=== PATIENT | male | born 2005 | race African-American/Black ===

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

== ENCOUNTER 2025-02-18 22:49 | Emergency (ER) | payer OTHER, SELFPAY ==
--- NOTE | ~2025-02-18 | XR_ITS ---
CLINICAL HISTORY: abd pain Abdomen X-ray, 1 View COMPARISON: None provided FINDINGS: Nonobstructive bowel gas pattern. No visible free air. No acute fracture. IMPRESSION: No acute findings. This document has been electronically signed by: Ryne Roberts MD on 02/19/2025 00:23:31
[2025-02-18 23:35] VITALS: BP 109/72; PULSE 100; RESP 18; TEMP 37; O2SAT 99; BMI 19.0
[2025-02-19 00:50] LABS: Hematocrit 44.2 % (42.0-52.0); Hemoglobin 15.0 g/dl (14.0-18.0); Imm Gran Abs Auto 0.16 X10*3/uL (0.00-0.03); Imm Gran Pct Auto 0.7 % (0.0-0.4); Lymphocytes Absolute Auto 0.5 X10*3/uL (1.2-4.9); MANUAL DIFF FLAG SCAN; Mean Corpuscular HGB Conc 33.9 g/dl (31.0-36.0); Mean Corpuscular Hemoglobin 28.4 pg (27.0-33.0); Mean Corpuscular Volume 83.7 fL (80.0-98.0); NRBC Abs Auto 0.000 X10*3/uL (0.0-0.012); NRBC Pct Auto 0.0 /100WBC (0.0-0.2); PLT CLUMP 1; Red Blood Count 5.28 X10*6/uL (4.60-5.80); SCAN SMEAR FLAG 1
[2025-02-19 00:53] LABS: Alanine Aminotransferase 24 U/L (0-40); Albumin Level 4.9 g/dL (3.5-5.0); Alkaline Phosphatase 62 U/L (39-117); Anion Gap 18 (12-20); Aspartate Amino Transferase 23 U/L (5-37); Blood Urea Nitrogen 14 mg/dL (9-16); Calcium 9.6 mg/dL (8.4-10.2); Carbon Dioxide 17 mmol/L (22-29); Chloride 110 mmol/L (96-108); Creatinine Clr Calc Pharmacy 111.8; Estimated Glomerular Filt Rate > 60; Lipase 14 U/L (8-78); Potassium 4.4 mmol/L (3.3-5.1); Sodium 141 mmol/L (135-145); Total Protein 8.1 g/dL (6.5-8.0)
[2025-02-19 01:25] LABS: Platelet Count 193 X10*3/uL (160-400); White Blood Count 22.4 X10*3/uL (4.8-10.8)
--- OUTSIDE RECORDS SUMMARY | 2025-02-19 03:34 | XMS_ITS | Encounter Summary ---
Author Organization [facility] Address [address] [place], [place] [phone] Phone Care Team Providers Care Plug Wirer Name Role Phone Sarika Trejo NP Primary Care Provider [phone] Encounter Details Date Type Department Care Team (Late st Contact Info) Description 11/04/2016 Conversion Encounter [facility] [place] [address] [place] [address] Social History Tobacco Use Types Packs/Day Years Used Date Smoking Tobacco: Never Assessed Sex and Gender Information Value Date Recorded Sex Assigned at Not on file Legal Sex Male 5:17 PM EDT Gender Identity Not on file Sexual Orientation Straight 02/04/2022 1: 15 PM EST documented as of this encounter Plan of Treatment Not on file documented as of this encounter Visit Diagnoses Not on filedocumented in this encounter Care Teams Plug Wirer Relationship Specialty Start Date End Date Sarika Trejo NP [address] [place] [address] PCP - General Pediatrics 08/16/24 01/30/25 documented as of this encounter
--- OUTSIDE RECORDS SUMMARY | 2025-02-19 03:34 | XMS_ITS | Encounter Summary ---
Author Organization [facility] Address [address] [place] [phone] Phone Care Team Providers Care Closing Machine Operator Name Role Phone Sarika Trejo NP Primary Care Provider [phone] Encounter Details Date Type Department Care Team (Late st Contact Info) Description 06/14/2016 Documentation [facility] [place] [address] [place] [address] Family Medicine, Physician [address] [place] [phone] Social History Tobacco Use Types Packs/Day Years [...] on filedocumented in this encounter Care Teams Closing Machine Operator Relationship Specialty Start Date End Date Sarika Trejo NP [address] [place] [address] PCP - General Pediatrics 08/16/24 01/30/25 documented as of this encounter
--- OUTSIDE RECORDS SUMMARY | 2025-02-19 03:34 | XMS_ITS | Encounter Summary ---
Author Organization [facility] Address [address] [place] [phone] Phone Care Team Providers Care Packer Name Role Phone aSrika Trejo NP Primary Care Provider [phone] Encounter Details Date Type Department Care Team (Late st Contact Info) Description 06/09/2016 Documentation [facility] [place] [address] [place], [place] [phone] Family Medicine, Physician [address], [place] [address] Social History Tobacco Use Types Packs/Day Years [...] on filedocumented in this encounter Care Teams Packer Relationship Specialty Start Date End Date Sarika Trejo NP [address] [place] [address] PCP - General Pediatrics 08/16/24 01/30/25 documented as of this encounter
--- OUTSIDE RECORDS SUMMARY | 2025-02-19 03:34 | XMS_ITS | Encounter Summary ---
Author Organization [facility] Address [address] [place] [phone] Phone Care Team Providers Care Aboriginal Education Teacher Name Role Phone Sarika Trejo NP Primary Care Provider [phone] Encounter Details Date Type Department Care Team (Late st Contact Info) Description 04/24/2012 Documentation [facility] [place] [address] [place], [place] [phone] Family Medicine, Physician [address], [place] [phone] Social History Tobacco Use Types Packs/Day Years [...] on filedocumented in this encounter Care Teams Aboriginal Education Teacher Relationship Specialty Start Date End Date Sarika Trejo NP [address] [place] [address] PCP - General Pediatrics 08/16/24 01/30/25 documented as of this encounter
--- OUTSIDE RECORDS SUMMARY | 2025-02-19 03:34 | XMS_ITS | Encounter Summary ---
Author Organization [facility] Address [address] [place] [phone] Phone Care Team Providers Care Department Secretary Name Role Phone Sarika Trejo NP Primary Care Provider [phone] Encounter Details Date Type Department Care Team (Late st Contact Info) Description 04/07/2016 Documentation [facility] [place] [address] [place], [place] [phone] Family Medicine, Physician [address] [place], [place] [address] Social History Tobacco Use Types Packs/Day Years [...] on filedocumented in this encounter Care Teams Department Secretary Relationship Specialty Start Date End Date Sarika Trejo NP [address] [place] [address] PCP - General Pediatrics 08/16/24 01/30/25 documented as of this encounter
--- OUTSIDE RECORDS SUMMARY | 2025-02-19 03:34 | XMS_ITS | Clinical Summary ---
Author Organization [facility] Address [address] [place] [address] Phone Care Team Providers Care Tool Room Lathe Operator Name Role Phone Unavailable Primary Care Provider Unavailabl e Allergies No known active allergies Medications albuterol HFA (PROAIR HFA) 108 (90 BASE) MCG/ACT inhalerIndication s:Mild intermittent asthma without complication Inhale 2 puffs every 4 (four) hours as needed for wheezing. 1 Units 7 Active Additional Information Patient not taking.Reported on 02/04/2022 GENOTROPIN 12 MG reconstituted solution 8 Active Active Problems Patient Care Coordination No te Formatting of this note migh t be different from the original. Dr Durand - last seen 06/05/18. Was suppose to f/u in 6 months. Pt is not taking Pediasure. I booked a f/u video visit, on May [address] Quarles - last seen 12/06/19 was suppose to f/u in 4 months. I will help mom schedule that appt. Mom states he is not on growth hormone shots because the administration kit for the shots doesn't fit the medicine that she has. Mom states she has called Endo about this. Mom states the last time he got the GH shot was in September. ADHD - Pt not on any meds. The Med prescriber form [facility] was giving meds but has not seen a therapist so Psychiatrist stopped prescribing. Mom states he is doing ok in school because mom has him doing his work from the kitchen table. Mom is interested in getting a therapist at [facility]. ( pt was seeing Shae at [facility]) Mom was advised this is short term until she can get another therapist. Asthma - Mom states he is doing well. Only uses inhaler if he gets a cold because it can trigger his Asthma. Problem Noted Date Diagnosed Date ADHD (attention deficit hype ractivity disorder), combined type Overview (05/17/2017): used to see Dr Bradley at [facility] for ADHD. Discharged for missed appts. Pt started getting stim med for [facility] 03/2016. Ritalin 20 mg in am, at 11 am & 10 mg at 3 pm. 03/2016:Dr Bradley has left [facility] - writing meds was transferred to [facility] 03/2016 because case closed with therapist due to missed appts. Pt started to see therapist from [facility] at [facility] Assessment & Plan (02/04/2022 1:17 PM EST): No meds. IEP in place. Doing well in school per Jam . May go to [employer] after high school Assessment & Plan (04/24/2020 10:46 AM EST): ADHD - Pt not on any meds. The Med prescriber form [facility] was giving meds but has not seen a therapist so Psychiatrist stopped prescribing. Mom states he is doing ok in school because mom has him doing his work from the kitchen table. Mom is interested in getting a therapist at [facility]. ( pt was seeing Shae at [facility]) Mom was advised this is short term until she can get another therapist. Assessment & Plan (11/24/2017 9:02 AM EDT): [facility] psych med provider Martin Bowser will now manage medications Continue to follow up with Shae from [facility] Follow up as needed Assessment & Plan (07/25/2017 2:26 PM EDT): Methylphenidate last filled 05/17/17 for 1 month. Has not followed through with therapist appts Only taking am dose of medication so will only fill for that dose for now unless I get info from school saying he needs more Told his mom that I will only if he keeps therapist appts Will take over the summer so will see Faustino back in 3 months Faustino is only on short acting MP per previous Psychiatrist. Will fill for same but only for am dose Assessment & Plan (05/17/2017 8:31 AM EST): Missing appts still an issue. Faustino last seen by me summer 2016. Missed appt in Dec 2016. Faustino stopped seeing therapist from [facility] - no showed appts. Faustino recently reconnected due to [facility] not filling meds until he came for follow up & reconnected to therapist Discussed again that medication will only be filled if Faustino keeps appointments Short stature disorder Overview (02/04/2022): discharged from Endo FU in 2007. Reconnected with Endo in 2015. Growth factor testing was normal. Endo started Growth hormone for Hx SGA & FTT in 201705/07/20: Endo increased GH dose Assessment & Plan (02/04/2022 1:16 PM EST): Last note from endocrinology was 05/10/2020. At that time he was not getting growth hormone because there was an issue with the vials did not fit the syringe that mom had. That was supposed to be fixed and he was supposed to follow-up in 4 months but he did not. Patient is now at his adult height. Assessment & Plan (04/24/2020 10:47 AM EST): Dr Quarles - last seen 12/06/19 was suppose to f/u in [address] HOGGER OPERATOR will help mom schedule that appt. Mom states he is not on growth hormone shots because the administration kit for the shots doesn't fit the medicine that she has. Mom states she has called Endo about this. Mom states the last time he got the GH shot was in September 2019 Assessment & Plan (07/25/2017 1:54 PM EDT): Seen by Endo 07/04/17 Bone age ordered (done & normal. BA=CA) - Pt starting puberty May try to get Growth hormone covered by Ins if family decides they want it Resolved Problems Problem Noted Date Diagnosed Date Resolved Date Failure to thrive in pediatric patient 11/11/2010 02/04/2022 Overview (02/04/2022): reconnected with Dr Durand 06/2015. Zantac started 75 mg BID. Pediasure 1 can BID. Work up for YOKASTA has been negative. Pt was to get gastric emptying study - no further notes 05/06/20: Seen by GI & discharged from further FU Assessment & Plan (02/04/2022 1:06 PM EST): Last seen by gastroenterology on 05/06/2020. Plan was to follow-up as needed Assessment & Plan (04/24/2020 10:46 AM EST): Dr Durand - last seen 06/05/18. Was suppose to f/u in 6 months. Pt is not taking Pediasure. [facility] [place] booked a f/u video visit, on May 06 at 3pm. Prematurity 06/11/2009 04/24/2020 Overview (05/17/2017): s/p 29 weeks gestation. SGA Gastroesophageal reflux dise ase without esophagitis 05/16/2020 Overview (05/16/2020): Dr Durand. On Zantac. Willie in past. G-Tube removed in 2012. Reconnected with GI 06/2015 after lengthy absence 05/06/20: Seen by GI & discharged from further FU Assessment & Plan (04/24/2020 10:46 AM EST): No meds Has telehealth visit with Dr Durand 05/06/20 Assessment & Plan (07/25/2017 1:57 PM EDT): Saw GI 06/30/17 Plan was: Raniditine 75 mg BID Pediasure 2 cans/day FOllow up with GI in 6 months. They will consider repeating EGD & UGI at FU Mild persistent asthma 03/19/189902/04 Overview (05/17/2017): Discharged from Pulmonary FU in 2010. Used Flovent in past. Flovent restarted with URI 03/2016 Assessment & Plan (02/04/2022 1:17 PM EST): No issue in years. No meds. Assessment & Plan (04/24/2020 10:47 AM EST): Asthma - Mom states he is doing well. Only uses inhaler if he gets a cold because it can trigger his Asthma. Assessment & Plan (07/25/2017 1:59 PM EDT): Mom says uses flovent only when sick. Flovent last filled Immunizations Immunization Administration Dates Next Due COVID-19 Pfizer, bivalent, 12+ years 02/04/2022 DTaP 5 10/16/2008, 6,2004,05/14,2004 H1N1 02/24/2009 HPV Vaccine 9 Valent 03/24/2016,04/04/2015 Hep A, ped/adol 01/29/2014,11/11/2010 Hep B, ped/adol 2004,2004,2004 Hib (HbOC) 2004,2004 Hib (PRP-T) 05/13/2005,2004 IPV 10/16/2008, 5,2004,03/15 Influenza Split 12/11/2012, 2,11/11/2010,12/02 Influenza, injectable, MDCK, preservative free, quadrivalent 03/24/2016 Influenza, injectable, quadrivalent 04/04/2015,1 03/31/2013 Influenza, injectable, quadr ivalent, preservative free 02/04/2022,04/24/2020,12/05/2017,05/17 Influenza, injectable, trivalent 009,01/23/2008,12/29/2006,01/11 MMR 10/16/2008,05/13/2005 Meningococcal Conj (Menactra) MCV4P 04/24/2020,0 04/04/2015 Pneumococcal Conjugate 05/13/2005,2004,2004,03/16 Tdap 04/04/2015 Varicella 10/16/2008,05/13/2005 Family History Medical History Relation Name Comments ADD / ADHD Brother terri Anxiety disorder Brother terri Asthma Brother terri Febrile seizures Brother terri Seizures Brother terri Asthma Half-Brother Favian Hypertension Maternal Grandfather Anxiety disorder Mother Blanca Depression Mother Blanca Diabetes Mother Blanca Heart murmur Mother Blanca Hyperlipidemia Mother Blanca Obesity Mother Blanca Relation Name Status Comments Brother terri Alive Father Faustino Alive Half-Brother Favian Alive Maternal Grandfather Alive Maternal Grandmother Mother Blanca Alive Paternal Grandfather Paternal Grandmother Sister Isis Alive Social History Tobacco Use Types Packs/Day Years Used Date Smoking Tobacco: Never Smokeless Tobacco: Never Alcohol Use Standard Drinks/Week Comments No 0 (1 standard drink = 0.6 oz pur e alcohol) Hunger/Food Answer Date Recorded In the last 12 months, did y ou or your family ever eat less than you felt you should because there wasn't enough money for food? No 07/14/2023 Stable Housing Answer Date Recorded Are you worried that in the next 2 months you may not have stable housing? No 07/14/2023 Transportation Concerns Answer Date Rec orded In the last 12 months, have you or your family ever had to go without healthcare because you didn't have a way to get there? No 07/14/2023 Hazards in Home Answer Date Recorded Think about the place you li ve. Do you have problems with any of the following? Pests (mice or roaches), mold, no/not working smoke detectors, water leaks, no window guards. No 2023 Financing Utilities Answer Date Recorde d In the last 12 months, has t he electric, gas, oil, or water company threatened to shut off your services in your home? No 07/14/2023 Safety at Home Answer Date Recorded Are you or your family worried about feeling saf e in your home? No 07/14/2023 Outside Support Answer Date Recorded Do you feel that you need mo re support from other people or programs to help you care for yourself or your family? No 07/14/2023 Understanding Health Concerns Answer Da te Recorded Do you need help understandi ng your or your child's healthcare needs (diagnosis, medications, plan, etc.)? No 07/14/2023 Financing Health Concerns Answer Date R ecorded In the last 12 months, was t here a time when your child needed to see a doctor or get medications or supplies but could not because of cost? No 07/14/2023 Missing School or Work Answer Date Jacobo rded Did you or your child miss s chool or work because of a health problem that could have been avoided? No 07/14/2023 Child Education Answer Date Recorded Do you have concerns about y our/your child's learning or behavior in school, preschool, or daycare? No 07/14/2023 Sex and Gender Information Value Date Recorded Sex Assigned at Not on file Legal Sex Male 5:17 PM EDT Gender Identity Not on file Sexual Orientation Straight 02/04/2022 1: 15 PM EST Last Filed Vital Signs Vital Sign Reading Time Taken Comments Blood Pressure 120/72 07/14/2023 4:25 PM EDT Pulse 83 07/14/2023 4:25 PM EDT Temperature 36.9 C (98.4 F) 10/13/2020 4:39 PM EDT Respiratory Rate - - Oxygen Saturation 95% 06/11/2009 12:00 AM EDT Inhaled Oxygen Concentration - - Weight 52.9 kg (116 lb 9.6 oz) 07/14/2023 4:25 P M EDT Height 162.6 cm (5' 4 ) 07/14/2023 4:25 PM EDT Body Mass Index 20.01 07/14/2023 4:25 PM EDT Plan of Treatment Health Maintenance Due Date Last Done Comments Men B Vaccine (1 of 2 - Standard) 2020 Influenza Vaccines (#1) 2024 02/05/20, 04/24/2020, 12/05/2017, Additional history exists COVID-19 Vaccine (5 - 2024-2 6 season) 2024 02/04/2022, 08/25/2021, 12/03/2020, Additional history exists DTaP,Tdap,and Td Vaccines (7 - Td or Tdap) 04/04/2025 04/04/2015, 10/16/2008, 07/15/2005, Additional history exists Hepatitis B Vaccines Completed 2004, 2004, 2004 HIB Vaccines Completed 05/13/2005, 05/20, 2004, Additional history exists Pneumococcal Vaccine Completed 05/13/2005, 2004, 2004, Additional history exists IPV Vaccines Completed 10/16/2008, 06/20, 2004, Additional history exists MMR Vaccines Completed 10/16/2008, 05/13/2005 Varicella Vaccines Completed 10/16/2008, 05/13/2005 Hepatitis A Vaccines Completed 01/29/2014, 11/12/19 11 HPV Vaccines Completed 03/24/2016, 04/04/2015 Meningococcal Vaccine Completed 04/24/2020, 016 Insurance [place] [address] [facility] NON PCC [facility] NON PCC
--- OUTSIDE RECORDS SUMMARY | 2025-02-19 03:34 | XMS_ITS | Encounter Summary ---
Author Organization [facility] Address [address] [place] [address] Phone Care Team Providers Care Leather Production Machine Operator Name Role Phone Sarika Trejo NP Primary Care Provider [phone] Encounter Details Date Type Department Care Team (Late st Contact Info) Description 06/17/2016 Documentation [facility] [place] Family Medicine [address] [place], [place] [phone] Family Medicine, Physician [address] [place], [place] [address]88591 Social History Tobacco Use Types Packs/Day Years [...] on filedocumented in this encounter Care Teams Leather Production Machine Operator Relationship Specialty Start Date End Date Sarika Trejo NP [address] [place] [address] PCP - General Pediatrics 08/16/24 01/30/25 documented as of this encounter
--- OUTSIDE RECORDS SUMMARY | 2025-02-19 03:34 | XMS_ITS | Encounter Summary ---
Author Organization [facility] Address [address] [place] [address] Phone Care Team Providers Care Dough Scaler And Mixer Name Role Phone Sarika Trejo NP Primary Care Provider [phone] Encounter Details Date Type Department Care Team (Late st Contact Info) Description 03/25/2011 Documentation [facility] [place] Family Medicine [address] [place] [address] Family Medicine, Physician [address] [place], [place] [phone] Social History Tobacco Use Types Packs/Day Years [...] on filedocumented in this encounter Care Teams Dough Scaler And Mixer Relationship Specialty Start Date End Date Sarika Trejo NP [address] [place] [address] PCP - General Pediatrics 08/16/24 01/30/25 documented as of this encounter
--- OUTSIDE RECORDS SUMMARY | 2025-02-19 03:34 | XMS_ITS | Encounter Summary ---
Author Organization [facility] Address [address] [place] [address] Phone Care Team Providers Care Syrup Mixer Assistant Name Role Phone Sarika Trejo NP Primary Care Provider [phone] Encounter Details Date Type Department Care Team (Late st Contact Info) Description 04/07/2016 Documentation [facility] [place] [address] [place], [place] [phone] Family Medicine, Physician [address] [place], [place] [address]891 Social History Tobacco Use Types Packs/Day Years [...] on filedocumented in this encounter Care Teams Syrup Mixer Assistant Relationship Specialty Start Date End Date Sarika Trejo NP [address] [place] [address] PCP - General Pediatrics 08/16/24 01/30/25 documented as of this encounter
--- OUTSIDE RECORDS SUMMARY | 2025-02-19 03:34 | XMS_ITS | Encounter Summary ---
Author Organization [facility] Address [address] [place] [address] Phone Care Team Providers Care Instrument Tester Name Role Phone Sarika Trejo NP Primary Care Provider [phone] Encounter Details Date Type Department Care Team (Late st Contact Info) Description 07/13/2016 Documentation [facility] [place] Family Medicine [address] [place], [place] [phone] Family Medicine, Physician [address] [place], [place] 548281 Social History Tobacco Use Types Packs/Day Years [...] on filedocumented in this encounter Care Teams Instrument Tester Relationship Specialty Start Date End Date Sarika Trejo NP [address] [place] [address] PCP - General Pediatrics 08/16/24 01/30/25 documented as of this encounter
--- OUTSIDE RECORDS SUMMARY | 2025-02-19 03:34 | XMS_ITS | Encounter Summary ---
Author Organization [facility] Address [address] [place] [address] Phone Care Team Providers Care Poiser Balance Name Role Phone Sarika Trejo NP Primary Care Provider [phone] Encounter Details Date Type Department Care Team (Late st Contact Info) Description 04/23/2016 Documentation [facility] [place] Family Medicine [address] [place], [place] [phone] Family Medicine, Physician [address] [place], [place] 376[address] Social History Tobacco Use Types Packs/Day Years [...] on filedocumented in this encounter Care Teams Poiser Balance Relationship Specialty Start Date End Date Sarika Trejo NP [address] [place] [address] PCP - General Pediatrics 08/16/24 01/30/25 documented as of this encounter
--- OUTSIDE RECORDS SUMMARY | 2025-02-19 03:34 | XMS_ITS | Encounter Summary ---
Author Organization [facility] Address [address] [place] [address] 16757 Phone Care Team Providers Care Cloud Engineer Name Role Phone Sarika Trejo NP Primary Care Provider Encounter Details Date Type Department Care Team (Late st Contact Info) Description 06/09/2016 Documentation [facility] [place] Family Medicine [address] [place], [place] [phone] Family Medicine, Physician [address] [place], [place] [address]28[address] Social History Tobacco Use Types Packs/Day Years [...] on filedocumented in this encounter Care Teams Cloud Engineer Relationship Specialty Start Date End Date Sarika Trejo NP [address] [place] [address] PCP - General Pediatrics 08/16/24 01/30/25 documented as of this encounter
--- OUTSIDE RECORDS SUMMARY | 2025-02-19 03:34 | XMS_ITS | Encounter Summary ---
Author Organization [facility] Address [address] [place] [address] Phone Care Team Providers Care Financial Aid Director Name Role Phone Sarika Trejo NP Primary Care Provider [phone] Encounter Details Date Type Department Care Team (Late st Contact Info) Description 05/17/2017 Patient Outreach [facility] [address] [place] [address] Maria Isabel Singh MD [address] [place] [address] Social History Tobacco Use Types Packs/Day Years [...] on filedocumented in this encounter Care Teams Financial Aid Director Relationship Specialty Start Date End Date Sarika Trejo NP [address] [place] [address] PCP - General Pediatrics 08/16/24 01/30/25 documented as of this encounter
--- OUTSIDE RECORDS SUMMARY | 2025-02-19 03:34 | XMS_ITS | Encounter Summary ---
Author Organization [facility] Address [address] [place] [address] Phone Care Team Providers Care Principal Trainer Name Role Phone Sarika Trejo NP Primary Care Provider [phone] Encounter Details Date Type Department Care Team (Late st Contact Info) Description 07/19/2014 Documentation [facility] [place] Family Medicine [address] [place], [place] [phone] Family Medicine, Physician [address] [place], [place] [address] Social History Tobacco Use Types Packs/Day Years [...] on filedocumented in this encounter Care Teams Principal Trainer Relationship Specialty Start Date End Date Sarika Trejo NP [address] [place] [address] PCP - General Pediatrics 08/16/24 01/30/25 documented as of this encounter
--- OUTSIDE RECORDS SUMMARY | 2025-02-19 03:34 | XMS_ITS | Encounter Summary ---
Author Organization [facility] Address [address] [place] [address] Phone Care Team Providers Care Can Closing Machine Operator Name Role Phone Sarika Trejo NP Primary Care Provider [phone] Encounter Details Date Type Department Care Team (Late st Contact Info) Description 01/14/2012 Documentation [facility] [place] [address] [place], [place] [phone] Family Medicine, Physician [address] [place], [place] [address] Social History Tobacco Use Types Packs/Day Years [...] on filedocumented in this encounter Care Teams Can Closing Machine Operator Relationship Specialty Start Date End Date Sarika Trejo NP [address] [place] [address] PCP - General Pediatrics 08/16/24 01/30/25 documented as of this encounter
--- OUTSIDE RECORDS SUMMARY | 2025-02-19 03:34 | XMS_ITS | Encounter Summary ---
Author Organization [facility] Address [address] [place] [address] Phone Care Team Providers Care Manager University Name Role Phone Sarika Trejo NP Primary Care Provider [phone] Encounter Details Date Type Department Care Team (Late st Contact Info) Description 04/12/2016 Documentation [facility] [place] Family Medicine [address] [place], [place] [phone] Family Medicine, Physician [address] [place], [place] 356001 Social History Tobacco Use Types Packs/Day Years [...] on filedocumented in this encounter Care Teams Manager University Relationship Specialty Start Date End Date Sarika Trejo NP [address] [place] [address] PCP - General Pediatrics 08/16/24 01/30/25 documented as of this encounter
--- OUTSIDE RECORDS SUMMARY | 2025-02-19 03:34 | XMS_ITS | Encounter Summary ---
Author Organization [facility] Address [address] [place] [address] Phone Care Team Providers Care Feather Trimmer Name Role Phone Sarika Trejo NP Primary Care Provider [phone] Encounter Details Date Type Department Care Team (Late st Contact Info) Description 04/06/2016 Documentation [facility] [place] Family Medicine [address] [place], [place] [phone] Family Medicine, Physician [address] [place], [place] [address]64931 Social History Tobacco Use Types Packs/Day Years [...] on filedocumented in this encounter Care Teams Feather Trimmer Relationship Specialty Start Date End Date Sarika Trejo NP [address] [place] [address] PCP - General Pediatrics 08/16/24 01/30/25 documented as of this encounter
--- OUTSIDE RECORDS SUMMARY | 2025-02-19 03:34 | XMS_ITS | Encounter Summary ---
Author Organization [facility] Address [address] [place] [address] Phone Care Team Providers Care Die Maker Stamping Name Role Phone Sarika Trejo NP Primary Care Provider [phone] Encounter Details Date Type Department Care Team (Late st Contact Info) Description 06/09/2012 Documentation [facility] [place] Family Medicine [address] [place], [place] [phone] Family Medicine, Physician [address] [place], [place] [address] Social History Tobacco Use Types Packs/Day Years [...] on filedocumented in this encounter Care Teams Die Maker Stamping Relationship Specialty Start Date End Date Sarika Trejo NP [address] [place] [address] PCP - General Pediatrics 08/16/24 01/30/25 documented as of this encounter
--- OUTSIDE RECORDS SUMMARY | 2025-02-19 03:34 | XMS_ITS | Encounter Summary ---
Author Organization [facility] Address [address] [place] [address] Phone Care Team Providers Care Farm Management Adviser Name Role Phone Sarika Trejo NP Primary Care Provider [phone] Encounter Details Date Type Department Care Team (Late st Contact Info) Description 08/08/2009 [place]ation [facility] [place] [address] [place] [address] Family Medicine, Physician [address], [place] [phone] Social History Tobacco Use Types Packs/Day Years [...] on filedocumented in this encounter Care Teams Farm Management Adviser Relationship Specialty Start Date End Date Sarika Trejo NP [address] [place] [address] PCP - General Pediatrics 08/16/24 01/30/25 documented as of this encounter
--- OUTSIDE RECORDS SUMMARY | 2025-02-19 03:35 | XMS_ITS | Encounter Summary ---
Author Organization [facility] Address [address] [place] [id number] Phone Care Team Providers Care Dedicated Local Truck Driver Name Role Phone Sarika Trejo NP Primary Care Provider [phone] Encounter Details Date Type Department Care Team (Late st Contact Info) Description 05/12/2015 Documentation [facility] [place] [address] [place], [place] [phone] Family Medicine, Physician [address], [place] [address] Social History Tobacco Use Types Packs/Day Years [...] on filedocumented in this encounter Care Teams Dedicated Local Truck Driver Relationship Specialty Start Date End Date Sarika Trejo NP [address] [place] [address] PCP - General Pediatrics 08/16/24 01/30/25 documented as of this encounter
--- OUTSIDE RECORDS SUMMARY | 2025-02-19 03:35 | XMS_ITS | Encounter Summary ---
Author Organization [facility] Address [address] [place] [phone] Phone Care Team Providers Care Nurse Ob Name Role Phone Sarika Trejo NP Primary Care Provider [phone] Encounter Details Date Type Department Care Team (Late st Contact Info) Description 07/04/2012 Documentation [facility] [place] Medicine [address] [place], [place] [phone] Family Medicine, Physician [address] [place], [place] [address] Social History Tobacco Use Types Packs/Day Years [...] on filedocumented in this encounter Care Teams Nurse Ob Relationship Specialty Start Date End Date Sarika Trejo NP [address] [place] [address] PCP - General Pediatrics 08/16/24 01/30/25 documented as of this encounter
--- OUTSIDE RECORDS SUMMARY | 2025-02-19 03:35 | XMS_ITS | Encounter Summary ---
Author Organization [facility] Address [address] [place] [phone] Phone Care Team Providers Care Research Assistant Member Name Role Phone Sarika Trejo NP Primary Care Provider [phone] Encounter Details Date Type Department Care Team (Late st Contact Info) Description 02/27/2016 Documentation [facility] [place] Family Medicine [address] [place], [place] [phone] Family Medicine, Physician [address], [place] [phone] Social History Tobacco Use Types Packs/Day Years [...] on filedocumented in this encounter Care Teams Research Assistant Member Relationship Specialty Start Date End Date Sarika Trejo NP [address] [place] [address] PCP - General Pediatrics 08/16/24 01/30/25 documented as of this encounter
--- OUTSIDE RECORDS SUMMARY | 2025-02-19 03:35 | XMS_ITS | Encounter Summary ---
Author Organization [facility] Address [address] [place] [address] Phone Care Team Providers Care Stranding Machine Operator Helper Name Role Phone Sarika Trejo NP Primary Care Provider [phone] Encounter Details Date Type Department Care Team (Late st Contact Info) Description 05/15/2015 Documentation [facility] [place] Family Medicine [address] [place], [place] [phone] Family Medicine, Physician [address], [place] [phone] Social History Tobacco Use Types Packs/Day Years [...] on filedocumented in this encounter Care Teams Stranding Machine Operator Helper Relationship Specialty Start Date End Date Sarika Trejo NP [address] [place] [address] PCP - General Pediatrics 08/16/24 01/30/25 documented as of this encounter
== END 2025-02-19 04:19 | disposition left against medical advice (07) ==
PROVIDERS: Emergency Provider Emergency Medicine
DX: R10.9 Unspecified abdominal pain (principal); Z53.21 Procedure and treatment not carried out due to patient leaving prior to being seen by health care provider
CPT/HCPCS: 36415; 74018; 80053; 83690; 85025; 99281

== ENCOUNTER → 2025-02-18 23:52 | Outpatient (BNV) | payer OTHER, SELFPAY | PROVIDERS: Visit Provider Radiology Diagnostic Radiology | DX: R10.9 Unspecified abdominal pain (principal) | CPT/HCPCS: 74018 ==

== ENCOUNTER 2025-02-19 14:08 | Emergency (ER) | payer OTHER, SELFPAY ==
[2025-02-19 14:16] VITALS: BP 103/65; PULSE 100; RESP 16; TEMP 36.9; O2SAT 98; BMI 18.3
--- NOTE | 2025-02-19 14:17 | ED_ITS ---
[facility] - Abdominal Pain General Chief Complaint: Abdominal Pain Stated Complaint: Stomach Pain Time Seen by Provider: 02/19/25 23:03 Source: patient Mode of arrival: ambulatory Limitations: no limitations History of Present Illness ED Provider: Dr. Christine [facility] narrative: 19-year-old male presented hospital today for evaluation of CT imaging. Patient was here for yesterday for abdominal pain. Describes it as a right-sided abdominal pain. He was found to have leukocytosis 22 as told to come back for CT imaging. Denies any nausea or vomiting. He is not complaining of any active abdominal pain currently. Related Data Previous Rx's ?Medication ?Instructions ?Recorded erythromycin 5 mg/gram (0.5 %) eye 0.5 inch ophthalmic (eye) Q4H #3.5 08/14/22 ointment grams ibuprofen 600 mg tablet 600 mg PO Q6H PRN pain #30 t abs 09/20/23 azithromycin 250 mg tablet See Rx Instructions PO .COM PLEX #6 02/19/25 (Zithromax) tabs Allergies Allergy/AdvReac Type Severity Reaction Status Date / Time No Known Allergies Allergy Verified 02/19/25 14:17 Review of Systems Review of Systems Pertinent review of systems as mentioned in [facility]. All other system otherwise negative. COUNTS INCLUDE 234 BEDS AT THE [facility] Past Medical History COUNTS INCLUDE 234 BEDS AT THE [facility] Narrative: Medical history as mentioned in [facility] Medical History No pertinent past medical history Social History Social History (Updated 09/20/23 @ 08:58 by Khadra Funes DO) Patient Tobacco Use Status: Never used Tobacco Physical Exam ED Exam Exam: General: Pleasant, no distress, interacting appropriately Head: Normacephalic, atraumatic ENT: oral mucosa moist, neck supple, no tracheal deviation Cardiovascular: regular rate, regular rhythm, no murmurs, rubbing, gallops Respiratory: CTAB, no wheeze, rales, rhonchi Gastrointestinal: Soft, non distended, non tender, non guarding Skin: Warm and dry Psychiatric: Appropriate mood and thoughts Vital Signs: Vital Signs - 24 hr 02/19/25 14:16 02/19/25 23:01 Temperature 98.4 F 98 F Pulse Rate 100 96 Respiratory Rate 16 16 Blood Pressure 103/65 110/72 Pulse Oximetry 98 98 Oxygen Delivery Method Room Air BMI result Body Mass Index 18.3 Course Course Course Narrative: This is a Rapid Medical Examination (RME) performed by Chata Alfaro PA-C in triage. Full HPI, ROS, assessment and treatment plan per primary provider in the Main ED. Hx: 20 yo M here for eval of acute onset RLQ abd pain, nausea and vomiting last night. Presented to the ED, had labs drawn which showed high white count. Left the ED prior to being seen due to long wait times. no hx of abdominal surgeries. Plan: repeat labs, UA - will defer imaging to primary provider Medical Decision Making Medical Decision Making [facility] Narrative: 20-year-old male presented hospital today for evaluation of CT imaging due to leukocytosis from lab work yesterday. On my evaluation the patient has no tenderness whatsoever. I did consider CT imaging I do not think he needs one at this time. He has a nonsurgical abdomen. Patient is agreeable to this plan of withholding CT imaging for now. Patient has been complaining of diarrhea since yesterday. No nausea no vomiting. Benign abdomen on exam. Repeat lab work was obtained. Leukocytosis 12.9. I suspect patient has leukocytosis secondary to diarrheal illness. No sign of sepsis no sign of tachycardia or fever. Patient will be discharged at this time. We will discharge patient with some Zithromax for diarrheal illness. Patient is stable. Differential Diagnosis Differential Diagnoses: The differential diagnosis associated with the presentation includes Leukocytosis, appendicitis, cholecystitis, diarrheal illness Lab Data [facility] Lab Attestation statement: I reviewed the patient's lab results. 02/19/25 14:44 02/19/25 14:44 Labs: Lab Results 02/19/25 Range/Units 14:44 WBC 12.9 H (4.8-10.8) X10*3/uL RBC 5.14 (4.60-5.80) X10*6/uL Hgb 14.5 (14.0-18.0) g/dl Hct 42.7 (42.0-52.0) % MCV 83.1 (80.0-98.0) fL MCH 28.2 (27.0-33.0) pg MCHC 34.0 (31.0-36.0) g/dl RDW 12.9 (11.0-16.0) % Plt Count 209 (160-400) X10*3/uL MPV 10.3 (9.4-12.4) fL Immature Gran % (Auto) 0.5 H (0.0-0.4) % Neut % (Auto) 83.0 H (45-73) % Lymph % (Auto) 7.2 L (20-40) % [place] % (Auto) 8.8 (2-11) % Eos % (Auto) 0.3 (0-4) % Baso % (Auto) 0.2 (0-2) % Lymph # (Auto) 0.9 L (1.2-4.9) X10*3/uL [place] # (Auto) 1.1 (0.1-1.2) X10*3/uL Eos # (Auto) 0.0 (0.0-0.4) X10*3/uL Baso # (Auto) 0.0 (0.0-0.2) X10*3/uL Abs Immat Gran (auto) 0.06 H (0.00-0.03) X10*3/uL Absolute Neuts (auto) 10.7 H (2.0-8.3) x10*3/uL Absolute Nucleated RBC 0.000 (0.0-0.012) X10*3/uL Nucleated RBC % (auto) 0.0 (0.0-0.2) /100WBC ESR 15 (0-15) MM/HR Sodium 140 (135-145) mmol/L Potassium 3.8 (3.3-5.1) mmol/L Chloride 104 (96-108) mmol/L Carbon Dioxide 27 (22-29) mmol/L Anion Gap 13 (12-20) BUN 15 (9-16) mg/dL Creatinine 0.98 (0.5-1.4) mg/dL Estim Creat Clear Calc 84.1 Estimated GFR > 60 Random Glucose 94 (60-115) mg/dL Calcium 9.7 (8.4-10.2) mg/dL Magnesium 1.9 (1.6-2.6) mg/dL Total Bilirubin 0.9 (0.0-1.0) mg/dL AST 29 (5-37) U/L ALT 22 (0-40) U/L Alkaline Phosphatase 60 (39-117) U/L C-Reactive Protein 5.96 H (< or = 0.50) mg/dL Total Protein 7.8 (6.5-8.0) g/dL Albumin 4.8 (3.5-5.0) g/dL Lipase 14 (8-78) U/L Discharge Plan Discharge Clinical Impression: Leukocytosis Qualifiers: Leukocytosis type: unspecified Qualified Code(s): D72.829 - Elevated white blood cell count, unspecified Patient Disposition: Home, Self-Care Additional Instructions: Follow up with your primary care doctor. Continue supportive treatment. Your abdominal exam is benign. You do have a small elevated white count of 12 which is improved from 22. Prescriptions: No Action ibuprofen 600 mg tablet 600 mg PO Q6H PRN (Reason: pain) Qty: 30 0RF erythromycin 5 mg/gram (0.5 %) ointment 0.5 inch ophthalmic (eye) Q4H Qty: 3.5 0RF Stand Alone Forms: Work/School Release Print Language: Syriac
[2025-02-19 14:51] LABS: MANUAL DIFF FLAG NO
[2025-02-19 14:52] LABS: Hematocrit 42.7 % (42.0-52.0); Hemoglobin 14.5 g/dl (14.0-18.0); Imm Gran Pct Auto 0.5 % (0.0-0.4); Mean Corpuscular HGB Conc 34.0 g/dl (31.0-36.0); Mean Corpuscular Hemoglobin 28.2 pg (27.0-33.0); Mean Corpuscular Volume 83.1 fL (80.0-98.0); Platelet Count 209 X10*3/uL (160-400); Red Blood Count 5.14 X10*6/uL (4.60-5.80); White Blood Count 12.9 X10*3/uL (4.8-10.8)
[2025-02-19 14:53] LABS: Imm Gran Abs Auto 0.06 X10*3/uL (0.00-0.03); Lymphocytes Absolute Auto 0.9 X10*3/uL (1.2-4.9); NRBC Abs Auto 0.000 X10*3/uL (0.0-0.012); NRBC Pct Auto 0.0 /100WBC (0.0-0.2)
[2025-02-19 15:09] LABS: Alanine Aminotransferase 22 U/L (0-40); Albumin Level 4.8 g/dL (3.5-5.0); Alkaline Phosphatase 60 U/L (39-117); Anion Gap 13 (12-20); Aspartate Amino Transferase 29 U/L (5-37); Blood Urea Nitrogen 15 mg/dL (9-16); Calcium 9.7 mg/dL (8.4-10.2); Carbon Dioxide 27 mmol/L (22-29); Chloride 104 mmol/L (96-108); Creatinine Clr Calc Pharmacy 84.1; Estimated Glomerular Filt Rate > 60; Lipase 14 U/L (8-78); Magnesium 1.9 mg/dL (1.6-2.6); Potassium 3.8 mmol/L (3.3-5.1); Sodium 140 mmol/L (135-145); Total Protein 7.8 g/dL (6.5-8.0)
[2025-02-19 15:55] LABS: Erythrocyte Sedimentation Rate 15 MM/HR (0-15)
[2025-02-19 23:01] VITALS: BP 110/72; PULSE 96; RESP 16; TEMP 36.6; O2SAT 98
[2025-02-19 23:21] VITALS: BP 110/72; PULSE 96; RESP 16; TEMP 36.6; O2SAT 98
== END 2025-02-19 23:23 | disposition home or self-care (01) ==
PROVIDERS: Physician Assistant Medical; Emergency Provider Student in an Organized Health Care Education/Training Program
DX: D72.829 Elevated white blood cell count, unspecified (principal); R10.10 Upper abdominal pain, unspecified
CPT/HCPCS: 36415; 80053; 83690; 83735; 85025; 85652; 86140; 99282; 99283